=== PATIENT | female | born 1965 | race Caucasian/White ===

== ENCOUNTER → 2018-08-06 | Outpatient (CLI) | payer BC, OTHER ==
[~2018-08-06] MED LIST: AMOX500C2 PO; DCS100C PO; DIPH1TAB PO; EST.625T PO; FERR-57 PO; IBP600T1 PO; MDR10T PO; OXYC-12 PO; PRD20T PO; ZLP10T PO
== END ==
LOC: CARD 08:48
PROVIDERS: ATTEND Internal Medicine Cardiovascular Disease
DX: I10 Essential (primary) hypertension (principal); R07.9 Chest pain, unspecified; Z82.49 Family history of ischemic heart disease and other diseases of the circulatory system
CPT/HCPCS: 93306